=== PATIENT | female | born 1940 | race Caucasian/White ===

== ENCOUNTER 2017-05-10 21:51 | Inpatient (IN) | payer MEDICARE, OTHER ==
[~2017-05-10] VITALS: Ht 152.4 cm; Wt 108.7 kg
[~2017-05-10 21:51] MED LIST: ACETAMINOPHEN500 M1 PO; CARDIZEM120 MG PO; CARTIA XT180 MG PO; COZAAR100 MG PO; ELIQUIS5 MG PO; FEXOFENADINE H180 MG PO; FUROSEMIDE20 MG PO; KLOR-CON M2020 MEQ PO; PACERONE200 MG PO; PLAVIX75 MG PO; PRADAXA150 MG PO; RESTORIL15 MG PO; TAZTIA XT360 MG PO
[2017-05-10 22:32] LABS: HEMATOCRIT 38.6 % (36.0-48.0); HEMOGLOBIN 11.1 g/dL (12-16); MCH 27.1 pg (26.0-34.0); MCHC 28.8 g/dL (31.0-37.0); MCV 94.4 fL (80.0-100.0); MEAN PLATELET VOLUME 10.5 fL (7.4-10.4); PLATELET COUNT 273 10x3/uL (130-400); RBC 4.09 10x6/uL (4.00-5.40); WBC 27.9 10x3/uL (4.8-10.8)
[2017-05-10 22:35] LABS: INR 1.7 (0.85-1.17); PROTIME 19.9 SECONDS (11.6-15.0)
[2017-05-10 22:36] LABS: APTT 53.4 SECONDS (22.8-39.4)
[2017-05-10 22:44] LABS: ALBUMIN 2.5 g/dL (3.4-5.0); ALKALINE PHOSPHATASE 88 U/L (46-116); ALT (SGPT) 305 U/L (10-68); BILIRUBIN - TOTAL 0.32 mg/dL (0.2-1.3); CALCIUM 7.6 mg/dL (8.5-10.1); CARBON DIOXIDE 19.1 mmol/L (21.0-32.0); CHLORIDE - SERUM 103 mmol/L (98-107); CREATININE - SERUM 1.5 mg/dL (0.6-1.3); PROTEIN - SERUM 5.6 g/dL (6.4-8.2); SODIUM 138 mmol/L (136-145); UREA NITROGEN 11 mg/dL (7-18); eGFR NON AFRICAN AMERICAN 36 mL/min (90-120)
[2017-05-10 22:58] LABS: CKMB 3.6 U/L (0.0-3.6); CREATINE KINASE 169 UL (21-215); MAGNESIUM - SERUM 2.2 mg/dL (1.8-2.4)
[2017-05-10 23:02] LABS: BASOPHILS 1 % (0-2); LYMPHOCYTES 35 % (15-50); MONOCYTES 3 % (2-11); NEUTROPHILS 50 % (40-80); PLATELET ESTIMATE NORMAL
[2017-05-10 23:09] LABS: CALC OSMOLALITY 286 mosm/kg (275-300); GLUCOSE 317 mg/dL (74-106)
[2017-05-11] VITALS (67 sets, daily range): BP systolic 66–149; BP diastolic 39–125; Ht 152.4 cm; Wt 108.7 kg
--- NOTE | 2017-05-11 01:40 | NUR ---
PT RECIEVED FROM ER VIA STRETCHER. TRANSFERRED TO ICU BED 2308. MONITOR EQUIP ESTABLISHED. PT UNRESPONSIVE WITH PUPILS FULLY DILATED AND NONREACTIVE. NO COUGH, NO GAG. BICARB GTT AND DOPAMINE INFUSING ON ARRIVAL. SBP IN THE LOW 70'S. DOPAMINE INCEASED BUT BP NOT RESONDING. LEVOPHED STARTED AND A NS BOLUS. VENT PER ETT. OG TUBE IN PLACE AND PLACEMENT VERIFIED PER AUSCULTATION. RESTRAINTS REMOVED DUE TO EXTREMITIES FLACCID. CAO TO GRAVITY WITH NO OP. 20G PIV R HAND, 20G PIV R AC BOTH ARE PATENT. 20G PIV STARTED IN L UPPER ARM BY MILTON TORRES. RECTAL TEMP 96.2 WARM BLANKETS APPLIED.
--- NOTE | 2017-05-11 02:30 | NUR ---
INITIAL BOLUS OF NS IS IN. LEVOPHED AND DOPAMINE ARE AT MAXIMUM DOSES. PT REMAINS UNRESPONSIVE.
--- NOTE | 2017-05-11 04:00 | NUR ---
NO CHANGES NOTED IN ASSESS. PT REMAINS UNRESPONSIVE. IS AT BEDSIDE AND DAUGHTERS ARE ON THE WAY HERE. DOPAMINE AND LEVOPHED REMAIN AT MAXIMUM DOSES.
--- NOTE | 2017-05-11 05:21 | NUR ---
KEILA NOTIFIED AT 505 AM. RECIEVED A RETURN CALL AND INSTRUCTED TO CALL IF PERFUSION SCAN OR EEG ARE TO BE PERFORMED. IF NOT CALL WITH A TIME OF IF PT IS TERMINALLY EXTUBATED.
[2017-05-11 05:26] LABS: BASOPHILS 0.1 % (0-2); EOSINOPHILS 0.1 % (0-7); HEMATOCRIT 43.7 % (36.0-48.0); IMMATURE GRANULOCYTES 0.7 % (0-5); LYMPHOCYTES 5.4 % (15-50); MCH 27.1 pg (26.0-34.0); MCHC 29.7 g/dL (31.0-37.0); MEAN PLATELET VOLUME 10.4 fL (7.4-10.4); MONOCYTES 3.2 % (2-11); NEUTROPHILS 90.5 % (40-80); PLATELET COUNT 311 10x3/uL (130-400); RBC 4.79 10x6/uL (4.00-5.40); RDW 15.9 % (11.5-14.5)
[2017-05-11 05:30] LABS: MCV 91.2 fL (80.0-100.0); WBC 19.9 10x3/uL (4.8-10.8)
--- NOTE | 2017-05-11 06:10 | NUR ---
SPOKE WITH DR JAMES ON THE PHONE. NOTIFIED HIM OF THE NEURO CONSULT.
[2017-05-11 06:19] LABS: ALKALINE PHOSPHATASE 103 U/L (46-116); ALT (SGPT) 357 U/L (10-68); CALCIUM 7.8 mg/dL (8.5-10.1); CARBON DIOXIDE 20.9 mmol/L (21.0-32.0); CHLORIDE - SERUM 107 mmol/L (98-107); PRO BNP 1906 pg/mL (0-450); PROTEIN - SERUM 6.2 g/dL (6.4-8.2); SODIUM 145 mmol/L (136-145)
[2017-05-11 06:24] LABS: CALC OSMOLALITY 293 mosm/kg (275-300); CREATINE KINASE 1095 UL (21-215); CREATININE - SERUM 1.9 mg/dL (0.6-1.3); GLUCOSE 156 mg/dL (74-106); POTASSIUM - SERUM 2.6 mmol/L (3.5-5.1); TROPONIN-I 19.059 ng/mL (0.000-0.060); UREA NITROGEN 17 mg/dL (7-18); eGFR NON AFRICAN AMERICAN 27 mL/min (90-120)
[2017-05-11 06:25] LABS: CKMB 67.5 U/L (0.0-3.6)
[2017-05-11 12:51] LABS: CKMB 80.6 U/L (0.0-3.6)
[2017-05-11 12:52] LABS: CREATINE KINASE 1801 UL (21-215); TROPONIN-I 15.349 ng/mL (0.000-0.060)
--- NOTE | 2017-05-11 13:47 | NUR ---
YELLOW WEDDING BAND AND YELLOW RING WITH SEVERAL CLEAR STONES GIVEN TO SALINAS {DAUGHTER}
--- NOTE | 2017-05-11 19:15 | NUR ---
REPORT RECIEVED, SHIFT ASSESSMENT COMPLETE, PT IS UNRESPONSIVE ON VENT, ALL LIMBS FLACCID, ON 60% FIO2 WITH 93% O2 SAT. LUNGS CLEAR IN B/L UPPER LOBES, DIMNISHED IN B/L LOWER LOBES, S1S2, CM-ST, PATENT RIGHT HAND PIV WITH NS INFUSING VIA PUMP, PATENT RIGHT A/C PIV WITH DOPAMINE INFUSING VIA PUMP, PATENT LEFT UPPER ARM PIV WITH LEVOPHED INFUSING VIA PUMP, ABDOMEN IS SOFT AND ROUND WITH HYPO BS, PATENT F/C WITH CONCENTRATED UOP, NO EDEMA NOTED, ALL PPP, REPOSITIONED FOR COMFORT, ORAL CARE PROVIDED,
--- NOTE | 2017-05-11 21:15 | NUR ---
FAMILY AT BEDSIDE, UPDATE GIVEN
[2017-05-11 22:20] LABS: CKMB 38.6 U/L (0.0-3.6)
[2017-05-11 22:22] LABS: CREATINE KINASE 1158 UL (21-215)
[2017-05-11 22:23] LABS: TROPONIN-I 9.201 ng/mL (0.000-0.060)
--- NOTE | 2017-05-11 23:15 | NUR ---
COMPLETE BATH AND LINEN CHANGE, PT TOLERATED WELL,
[2017-05-12] VITALS (63 sets, daily range): BP systolic 87–189; BP diastolic 50–96
--- NOTE | 2017-05-12 01:03 | NUR ---
REPOSITIONED FOR COMFORT, ORAL CARE PROVIDED,
--- NOTE | 2017-05-12 03:00 | NUR ---
REASSESSMENT COMPLETE, NO CHANGES NOTED, RAD IN ROOM FOR DAILY CXR
[2017-05-12 04:32] LABS: BASOPHILS 0.1 % (0-2); EOSINOPHILS 0 % (0-7); HEMATOCRIT 46.2 % (36.0-48.0); HEMOGLOBIN 14.1 g/dL (12-16); IMMATURE GRANULOCYTES 1.1 % (0-5); LYMPHOCYTES 4.5 % (15-50); MCH 27.3 pg (26.0-34.0); MCHC 30.5 g/dL (31.0-37.0); MCV 89.5 fL (80.0-100.0); MONOCYTES 7.3 % (2-11); PLATELET COUNT 264 10x3/uL (130-400); RBC 5.16 10x6/uL (4.00-5.40); RDW 16.5 % (11.5-14.5); WBC 20.4 10x3/uL (4.8-10.8)
[2017-05-12 04:48] LABS: ALBUMIN 2.5 g/dL (3.4-5.0); BILIRUBIN - TOTAL 0.65 mg/dL (0.2-1.3); CALCIUM 7.3 mg/dL (8.5-10.1); CARBON DIOXIDE 23.4 mmol/L (21.0-32.0); MAGNESIUM - SERUM 1.7 mg/dL (1.8-2.4); PHOSPHOROUS 4.1 mg/dL (2.5-4.9); PROTEIN - SERUM 6.2 g/dL (6.4-8.2)
[2017-05-12 04:50] LABS: ANION GAP 14.9 mmol/L (8-16); CREATININE - SERUM 3.2 mg/dL (0.6-1.3); POTASSIUM - SERUM 5.3 mmol/L (3.5-5.1)
--- NOTE | 2017-05-12 05:15 | NUR ---
REPOSITIONED FOR COMFORT, ORAL CARE PROVIDED,
--- NOTE | 2017-05-12 06:24 | NUR ---
DR. JAMES AT BEDSIDE, UPDATE GIVEN, NEW ORDERS RECIEVED,
--- NOTE | 2017-05-12 07:00 | NUR ---
PT REPORT REC'D, PT CARE ASSUMED. PT NONRESPONSIVE, ON THE VENT. BRUISES, SCABS AND SORES NOTED ON CHEST. CAO CATHETER FREE OF KINKS TO GRAVITY WITH BIENVENIDO, CONCENTRATED URINE RETURN. SHIFT ASSESSMENT COMPLETED, SEE FLOW SHEET. ROOM FREE OF CLUTTER, BED ALARM ACTIVE, ROOM CLOSE TO NURSES STATION. WILL CONTINUE TO MONITOR PT.
--- NOTE | 2017-05-12 08:13 | NUR ---
DREW AT THE BEDSIDE FOR EEG
--- NOTE | 2017-05-12 08:40 | NUR ---
KIANA TO FROM [facility] CALLING TO CHECK ON STATUS OF PT, UPDATE GIVEN. "IF ANYTHING HAPPENS WITH PATIENT, CALL US WITH THE TIME OF ."
--- NOTE | 2017-05-12 09:42 | NUR ---
PT FAMILY AT THE BEDSIDE, ALL QUESTIONS ANSWERED, "I'M WAITING FOR HER SISTER TO GET HERE." WILL CONTINUE TO LAYLA PT.
--- NOTE | 2017-05-12 11:00 | NUR ---
REPOSITIONED PT, PROPPED WITH PILLOWS, REASSESSMENT COMPLETED, SEE FLOW SHEET. ROOM FREE OF CLUTTER, BED LOCKED IN LOWEST POSITION, WILL CONTINUE TO MONITOR PT.
--- NOTE | 2017-05-12 12:00 | NUR ---
REPOSITIONED PT, PROPPED WITH PILLOWS, WILL CONTINUE TO MONITOR PT.
--- NOTE | 2017-05-12 13:15 | NUR ---
TRANSFERRED PT TO [facility], [place] WITH RESPIRATORY AT THE BEDSIDE
--- NOTE | 2017-05-12 13:28 | NUR ---
PT RETURNED FROM [email or web address], CONNECTED PT TO MONITORS.
--- NOTE | 2017-05-12 15:00 | NUR ---
PT FAMILY AT THE BEDSIDE, ALL QUESTIONS ANSWERED, REASSESSMENT COMPLETED, SEE FLOW SHEET. ROOM FREE OF CLUTTER, WILL CONTINUE TO MONITOR TP.
--- NOTE | 2017-05-12 15:43 | NUR ---
PTS FAMILY AT THE BEDSIDE, ALL QUESTIONS ANSWERED, FAMILY REQUESTING TO SPEAK WITH A DR. SPOKE WITH DEEPA SANHCEZ, "I WILL LET DR. TAPIA KNOW." SPOKE WITH DR. EUGENE "LET DR. JAMES KNOW, AND I WILL BE THERE IN A BIT." SPOKE WITH DR. JAMES, INFORMED OF THE [facility] RADIOLOGY REPORT.
--- NOTE | 2017-05-12 15:55 | NUR ---
DR. EUGENE AT THE BEDSIDE SPEAKING WITH FAMILY.
--- NOTE | 2017-05-12 17:02 | NUR ---
1615-PTS INFORMED THAT THEY WISH TO USE [facility] 1620-CALLED [facility], SPOKE WITH LACIE TO INFORM OF PT'S FAMILY DECISION TO USE [facility] ONCE CARE WAS WITHDRAWN FROM PT, "OKAY, JUST CALL ME AFTER SHE IS PRONOUNCED." 163- PT FAMILY INFORMED ME THAT THEY WERE READY TO WITHDRAW SUPPORT FROM PATIENT. NO PT BELONGINGS AT THE BEDSIDE. 163- PT EXTUBATED, DC'ED IV'S AND FLUIDS4 1651-DR. TAPIA PRONOUNCED PT 1654-NOTIFIED KEILA, SPOKE WITH MARKY, DUE TO PT'S AGE, SHE WAS NOT A CANDIDATE FOR ORGAN/TISSUE DONATION. 1699-CONTACTED [facility], SPOKE WITH ZEYNEP PORTILLO, INFORMED OF PT'S EXPIRING. 1701-SPOKE WITH MARKY FROM [facility] TO INFORM OF PT'S PASSING. "I WILL LET LACIE KNOW."
--- NOTE | 2017-05-12 17:26 | NUR ---
KENISHA PORTILLO WITH [facility] AT THE BEDSIDE TO TRANSFER PT.
--- NOTE | 2017-05-13 09:41 | EC ---
PATIENT:CUCO APPIAH DATE OF SERVICE: 05/10/17 SEX: F MEDICAL RECORD: [id number] DATE OF : 40 LOCATION:[facility] AGE OF PATIENT: 76 ADMISSION DATE: 05/10/17 REFERRING PHYSICIAN: INTERPRETING PHYSICIAN: DC CARIAS MD ECHOCARDIOGRAM REPORT ECHO CHARGES 4 ECHO COMPLETE CLINICAL DIAGNOSIS: CARDIAC ARREST ECHOCARDIOGRAPHIC MEASUREMENTS (adult normal given) AC root (d.<3.7cm) 3.6 cm LV Septum d (<1.2 cm> 1.6 cm Valve Excursion 1.5 cm LV Septum (systole) 2.0 cm Left Atria (s.<4.0cm> 4.1 cm LVPW d(<1.2cm) 1.6 cm RV (d.<2.3cm) 1.9 cm LVPW (sytole) 2.0 cm LV diastole(<5.6CM) 3.2 cm MV E-F(>70mm/sec) cm LV systole 1.6 cm LVOT Diameter 1.9 cm MV exc.(>10mm) cm Est.ejection fraction (50-75%) % Pericardial Effusion N DOPPLER: LVIT cm/sec A 36.0 cm/sec E 98.0 cm/sec LA cm/sec RVSP 24.3 mmHg LVOT 125 cm/sec AOP1/2T m/s Asc. Ao 134 cm/sec RVOT 167 cm/sec RA cm/sec PA 138 cm/sec AV Gradient Peak 7.2 mmHg AV Mean 4.3 mmHg AV Area 2.0 cm MV Gradient Peak 7.0 mmHg MV Mean 3.0 mmHg MV Area cm COMMENTS: [employer] Network Engineer: 1 JUANJO POWELLOE Traveling Repair Accountant: 1 Dr. Carias TAPE# PACS DATE OF SERVICE: 05/11/2017 Echocardiogram FINDINGS: 1. Left ventricular chamber size is within normal limits. Left ventricular systolic function is normal. Overall ejection fraction is mildly depressed. Overall ejection fraction 40% to 45%. There is mild global hypokinesis throughout all segments with no discrete wall motion abnormalities present. 2. The left atrium is mildly dilated at 4.1 cm. Right atrium and right ECHOCARDIOGRAM REPORT [id number] CUCO APPIAH ventricle chamber sizes are within normal limits. 3. Valvular structures have normal structure and motion. 4. Doppler interrogation reveals no significant valvular insufficiency or stenosis and pulmonary systolic pressure is normal estimated at 24 mmHg. 5. No evidence of pericardial effusion or left ventricular thrombus. TRANSINT:[id number] Voice Confirmation ID: [id number] DOCUMENT ID: [id number] DC CARIAS MD at 0941 CC: [id number] DICTATION DATE: 05/11/17 1236 PORT PURSER: 05/11/17 1554 DIS IN 05/12/17 [id number] [place] [address]
[2017-05-15 19:07] LABS: AEROBE ID Final report (())
--- NOTE | 2017-05-16 08:02 | EEG ---
PATIENT:CUCO APPIAH DATE OF SERVICE: 05/10/17 MEDICAL RECORD: [id number] DATE OF : 40 LOCATION:D.230 D.ICU ADMISSION DATE: 05/10/17 REFERRING PHYSICIAN: INTERPRETING PHYSICIAN: ABIDA JAMES MD DATE OF SERVICE: 05/12/2017 Electroencephalographic Report Referred as an inpatient by myself in room 2308. ELECTROENCEPHALOGRAM NUMBER: [id number] DATE OF EXAMINATION: 05/12/2017 at 10:10 a.m. DATE OF : 1940 TECHNICAL DATA: This electroencephalographic recording consisted of approximately 20 minutes of data collection utilizing the international 10/20 system of electrode placement and both referential and non-referential montages. Sixteen channels of electrocerebral recording are accompanied by a 17th channel dedicated to the electrocardiographic rhythm and 2 channels of electromyographic recording. Recording is performed entirely in the comatose state utilizing activation by photic stimulation, as well as both verbal and tactile stimulation. ELECTROENCEPHALOGRAPHIC DATA: The entirety of the recorded electrocerebral activity is performed in the comatose state. Electromyographic artifact is absent and rapid eye movements are not seen. The study is done with a predominantly wide interelectrode distance montages, had a sensitivity of 3 microvolts per mm. All deflections are counted for by electrocardiographic impulses, as well as some ventilator-associated artifact. No electrocerebral activity has seen throughout the recording at a sensitivity of 3 microvolts per mm. No epileptiform discharges are seen. Photic stimulation and verbal and tactile stimulation induced no change in the recorded electrocerebral activity. INTERPRETATION: Electrocerebral silence (coma). This electroencephalographic recording demonstrates absence of electrocerebral activity and is consistent with brain in the correct clinical setting. TRANSINT:[id number] Voice Confirmation ID: [id number] DOCUMENT ID: [id number] ELECTROENCEPHALOGRAM REPORT [id number] CUCO APPIAH ABIDA JAMES MD at 0802 CC: [id number] DICTATION DATE: 05/12/17 1745 FORM RAISER: 05/13/17 0214 DIS IN 05/12/17 [id number] [place] [address]
--- NOTE | 2017-05-16 08:02 | EEG ---
PATIENT:CUCO APPIAH DATE OF SERVICE: 05/10/17 MEDICAL RECORD: [id number] DATE OF : 40 LOCATION:D.230 D.ICU ADMISSION DATE: 05/10/17 REFERRING PHYSICIAN: INTERPRETING PHYSICIAN: ABIDA JAMES MD DATE OF SERVICE: 05/11/2017 Electroencephalographic Report REFERRED BY: Myself as an inpatient, currently in room 2308. ELECTROENCEPHALOGRAM NUMBER: [id number]. DATE OF EXAMINATION: 05/11/2017 at 10:11 a.m. TECHNICAL DATA: This electroencephalographic recording consisted of approximately 20 minutes of data collection utilizing the international 10/20 system of electrode placement and both referential and non-referential montages. Sixteen channels of electrocerebral recording are accompanied by a 17th channel dedicated to the electrocardiographic rhythm and 2 channels of electromyographic recording. Recording is performed entirely in the comatose state utilizing activation by photic stimulation as well as verbal and tactile stimulation. ELECTROENCEPHALOGRAPHIC DATA: The entirety of the recorded electrocerebral activity is performed in the comatose state. This is a very low voltage recording. Electromyographic artifact is markedly reduced. Rapid eye movements are not seen. Electrocerebral activity is not observed except a very high sensitivity of 3 microvolts per millimeter, at the sensitivity irregular 3-4 Hz delta slowing. It is occasionally observed primarily in the left centrotemporal region. No other electrocerebral activity is observed. No epileptiform discharges are seen. Photic stimulation as well as verbal and tactile stimulation induced. No change in the recorded electrocerebral activity. INTERPRETATION: 1. Very low voltage recording (coma). 2. Intermittent slow, focal, left centrotemporal. This electroencephalographic recording is indicative of a severe diffuse encephalopathy with minimal electrocerebral activity observed in the left centrotemporal region only. No other electrocerebral activity is observed. TRANSINT:[id number] Voice Confirmation ID: [id number] DOCUMENT ID: [id number] ELECTROENCEPHALOGRAM REPORT [id number] CUCO APPIAH ABIDA JAMES MD at 0802 CC: [id number] DICTATION DATE: 05/11/17 1153 RETAIL ASSOCIATE: 05/11/17 2138 DIS IN 05/12/17 [address] [place] [address]
== END 2017-05-12 16:52 | DRG 871 ==
LOC: D.ER 21:51 → D.ICU 23:51
PROVIDERS: Family Medicine; Internal Medicine Pulmonary Disease; ADMIT Emergency Medicine
PROC: 5A12012 Performance of Cardiac Output, Single, Manual (ICD-10-PCS; principal; 2017-05-10)
PROC: 0BH17EZ Insertion of Endotracheal Airway into Trachea, Via Natural or Artificial Opening (ICD-10-PCS; 2017-05-10)
PROC: 5A1945Z Respiratory Ventilation, 24-96 Consecutive Hours (ICD-10-PCS; 2017-05-10)
DX: A41.9 Sepsis, unspecified organism (principal); R65.21 Severe sepsis with septic shock; G93.40 Encephalopathy, unspecified; G93.6 Cerebral edema; I50.21 Acute systolic (congestive) heart failure; J96.92 Respiratory failure, unspecified with hypercapnia; J96.91 Respiratory failure, unspecified with hypoxia; G93.1 Anoxic brain damage, not elsewhere classified; N17.9 Acute kidney failure, unspecified; D68.9 Coagulation defect, unspecified; R57.0 Cardiogenic shock; Z66 Do not resuscitate; I48.2 Chronic atrial fibrillation; I25.10 Atherosclerotic heart disease of native coronary artery without angina pectoris; R74.8 Abnormal levels of other serum enzymes; R79.89 Other specified abnormal findings of blood chemistry; Z79.01 Long term (current) use of anticoagulants; E87.6 Hypokalemia; J32.9 Chronic sinusitis, unspecified; I11.0 Hypertensive heart disease with heart failure; Z95.1 Presence of aortocoronary bypass graft; R73.9 Hyperglycemia, unspecified